=== PATIENT | female | born 1960 | race Caucasian/White ===

== ENCOUNTER 2021-11-17 08:20 | Outpatient (CLI) | payer BC, SELFPAY ==
--- NOTE | 2021-11-17 08:15 | CRLHL7_ITS ---
For Patients: As a result of the Century Cures Act, medical imaging exams and procedure reports are released immediately into your electronic medical record. You may view this report before your referring provider. If you have questions, please contact your health care provider. BILATERAL SCREENING MAMMOGRAM WITH COMPUTER-AIDED DETECTION AND TOMOSYNTHESIS TECHNIQUE: CC and MLO views were obtained. These mammographic images have been obtained using full-field digital technique. These mammographic images were interpreted with the benefit of computer-aided detection. Breast Tomosynthesis was used in this interpretation. COMPARISON FILM: 09/24/20, 09/14/19, 04/21/18. FINDINGS: There are scattered areas of fibroglandular density IMPRESSION: There is no radiographic evidence for malignancy. ASSESSMENT: BI-RADS Category 1: Negative RECOMMENDATION: Routine screening mammogram in 1 year. A lay language report of this examination will be provided to the patient. Rozina Wilcox M.D. Diagnostic/Breast Radiologist [email or web address] MC/Dictated by: Rozina Wilcox MD @ 11/17/2021 10:01:00 AM (Electronically Signed)
== END 2021-11-17 08:21 | disposition home or self-care (01) ==
LOC: MAMMO 08:21
PROVIDERS: Visit Provider Obstetrics & Gynecology
DX: Z12.31 Encounter for screening mammogram for malignant neoplasm of breast (principal)
CPT/HCPCS: 77063; 77067

== ENCOUNTER 2023-01-20 14:27 | Outpatient (CLI) | payer BC, SELFPAY ==
--- NOTE | 2023-01-20 14:40 | CRLHL7_ITS ---
For Patients: As a result of the Cures Act, medical imaging exams and procedure reports are released immediately into your electronic medical record. You may view this report before your referring provider. If you have questions, please contact your health care provider. BILATERAL SCREENING MAMMOGRAM WITH COMPUTER-AIDED DETECTION AND TOMOSYNTHESIS TECHNIQUE: CC and MLO views were obtained. These mammographic images have been obtained using full-field digital technique. These mammographic images were interpreted with the benefit of computer-aided detection. Breast Tomosynthesis was used in this interpretation. COMPARISON FILM: 11/17/21, 09/24/20, 09/14/19. FINDINGS: There are scattered areas of fibroglandular density IMPRESSION: There is no radiographic evidence for malignancy. ASSESSMENT: BI-RADS Category 1: Negative RECOMMENDATION: Routine screening mammogram in 1 year. A lay language report of this examination will be provided to the patient. Elvis Campos M.D. Diagnostic Radiologist [email or web address] HOA/amy / be/Dictated by: Elvis Campos MD @ 01/21/2023 8:07:00 AM (Electronically Signed)
== END 2023-01-20 14:28 | disposition home or self-care (01) ==
LOC: MAMMO 14:28
PROVIDERS: Visit Provider Obstetrics & Gynecology
DX: Z12.31 Encounter for screening mammogram for malignant neoplasm of breast (principal)
CPT/HCPCS: 77063; 77067

== ENCOUNTER 2023-10-27 09:23 | Outpatient (CLI) | payer BC, SELFPAY | END 2023-10-27 09:24 | disposition home or self-care (01) | LOC: NFLDREF 09:25 | PROVIDERS: Visit Provider Obstetrics & Gynecology | DX: N32.89 Other specified disorders of bladder (principal); R82.90 Unspecified abnormal findings in urine | CPT/HCPCS: 87086; 87624 ==

== ENCOUNTER 2024-02-29 08:05 | Outpatient (CLI) | payer BC, SELFPAY ==
--- NOTE | 2024-02-29 08:15 | CRLHL7_ITS ---
For Patients: As a result of the Century Cures Act, medical imaging exams and procedure reports are released immediately into your electronic medical record. You may view this report before your referring provider. If you have questions, please contact your health care provider. BILATERAL SCREENING MAMMOGRAM WITH COMPUTER-AIDED DETECTION AND TOMOSYNTHESIS TECHNIQUE: CC and MLO views were obtained. These mammographic images have been obtained using full-field digital technique. These mammographic images were interpreted with the benefit of computer-aided detection. Breast Tomosynthesis was used in this interpretation. COMPARISON FILM: 01/20/23, 11/17/21, 09/24/20. FINDINGS: There are scattered areas of fibroglandular density. IMPRESSION: There is no radiographic evidence for malignancy. ASSESSMENT: BI-RADS Category 2: Benign RECOMMENDATION: Routine screening mammogram in 1 year. A lay language report of this examination will be provided to the patient. Elvis Campos M.D. Diagnostic Radiologist [email or web address] SP/Dictated by: Elvis Campos MD @ 02/29/2024 9:28:00 AM (Electronically Signed)
== END 2024-02-29 08:06 | disposition home or self-care (01) ==
LOC: MAMMO 08:06
PROVIDERS: Visit Provider Obstetrics & Gynecology
DX: Z12.31 Encounter for screening mammogram for malignant neoplasm of breast (principal)
CPT/HCPCS: 77063; 77067